=== PATIENT | male | born 1970 | race African-American/Black ===

== ENCOUNTER 2016-10-27 21:33 | Emergency (ER) | payer OTHER ==
[~2016-10-27] VITALS: Ht 170.2 cm; Wt 105.0 kg
[~2016-10-27 21:33] MED LIST: ALBUAER3 INH; AMLO10 PO; CLON0.1T PO; CYCL1TAB29 PO; HYDR25TA35 PO; HYDR25TA5 PO
[2016-10-27 21:41] VITALS: BP 121/71; PULSE 72; RESP 20; TEMP 98.6; O2SAT 95
--- NOTE | 2016-10-27 22:21 | PD ---
HPI Chief Complaint: Injury Time Seen by Provider: 22:17 Travel History International Travel<30 days: No Contact w/Intl Traveler<30days: No Traveled to known affect area: No History of Present Illness HPI 45-year-old black male right-hand dominant presents emergency Department in custody of PD for evaluation of right wrist pain. According to PD he was restraining another individual against her will. The patient struck his hand and wrist against a table in anger. This is how he sustained his injury. He states that he had broken his wrist many years ago as a child. He denies any other injuries. 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 He does see shadows. [facility] Past Medical History Narrative Medical DJD, Hypertension, hypercholesterolemia, retinitis pigmentosa Arthritis: Yes (KNEE- LEFT) Cardiovascular Problems: Yes (HTN ) High Cholesterol: Yes Diminished Hearing: No Hypertension: Yes Immunizations Current: Yes Tetanus Vaccination: > 5 Years Past Surgical History Body Medical Devices: RETINITIS PIGMENTOSA Eye Surgery: Yes (right eye) Social History Alcohol Use: Yes (OCCASIONAL) Tobacco Use: Yes (1 PACK PER DAY) Substance Use: Yes (CANNABIS) Allergies-Medications (Allergen,Severity, Reaction): Coded Allergies: Tramadol (Verified Adverse Reaction, Intermediate, upset stomach, 10/27/16) Reported Meds & Prescriptions Reported Meds & Active Scripts Active Hydrochlorothiazide 25 Mg Tab 25 Mg PO DAILY Reported Proair Hfa 8.5 GM Inh (Albuterol Sulfate) 90 Mcg/Act Aer 2 Puff INH Q4-6H PRN 108 mcg/actuation Flexeril (Cyclobenzaprine HCl) 10 Mg Tab 10 Mg PO TID PRN Hydralazine (Hydralazine HCl) 25 Mg Tab 25 Mg PO DAILY Take with a meal Clonidine (Clonidine HCl) 0.1 Mg Tab 0.1 Mg PO DAILY Review of Systems Except as stated in HPI: all other systems reviewed are Neg Physical Exam Narrative GENERAL: This is a well-nourished, well-developed patient, in no apparent distress. Patient is handcuffed to the bed with his left wrist. SKIN: No rashes, ecchymoses or lesions. Warm and dry. HEAD: Atraumatic. Normocephalic. EYES: PERRL, EOMI, no discharge or injection. No scleral icterus. EARS: Clear NOSE: Nasal turbinates appear normal. THROAT: Mucosa pink and moist. Airway patent. NECK: Trachea midline. supple, moves head freely. LUNGS: Clear to auscultation. CV: Regular in rhythm. ABDOMEN: Soft nontender. EXT: No clubbing cyanosis. Examination of the right upper extremity reveals pain in the dorsal and volar wrist. Mild discomfort in the snuffbox. He has pain to the proximal farhan. No distal farhan pain. No pain in the fingers. He is able to open close his fingers freely. Good co founder and cto. Median/ulnar /radial nerves grossly intact.. The skin is intact. No pain in the elbow or shoulder. Data Data Last Documented VS Vital Signs Date Time Temp Pulse Resp B/P Pulse Ox O2 Delivery O2 Flow Rate FiO2 10/27/16 21:41 98.6 72 20 121/71 95 Orders Wrist, Complete ([id number]) (10/27/16 22:17) Ice/Cold Pack (10/27/16 22:17) MDM Medical Decision Making Medical Screen Exam Complete: Yes Emergency Medical Condition: Yes Medical Record Reviewed: Yes Interpretation(s) Right wrist: Negative for acute bony injury Differential Diagnosis MDM: High Differential diagnoses: Fracture, sprain, strain, dislocation, contusion, neurovascular injury Narrative Course Icepack applied. X-rays of the right wrist. X-ray of the right wrist is negative for acute bony injury. Patient is given an Darell wrap. The patient is medically cleared to go to [facility]. Patient given 800 mg of ibuprofen here in the ER. This is right wrist and hand contusion Diagnosis Primary Impression: Contusion of multiple sites of right hand and wrist Qualified Code: S60.221A - Contusion of multiple sites of right hand and wrist , initial encounter Patient Instructions: General Instructions Additional Instructions: Rest. Elevation. Darell wrap. Motrin. Ice packs for next 3 days. Follow-up with a primary care doctor in the next 3-7 days. Return to the ER for any problems. Med/Other Pt SpecificInfo: Prescription(s) given Disposition: 01 DISCHARGE HOME Condition: Stable Paul Reilly Oct 27, 2016 22:21
--- NOTE | 2016-10-27 22:42 | RADRPT ---
EXAM DATE/TIME: 10/27/2016 22:28 [place] COMPARISON: No previous studies available for comparison. INDICATIONS : Right wrist pain after punching a table today. MEDICAL HISTORY : Previous fracture. SURGICAL HISTORY : None. ENCOUNTER: Initial ACUITY: 1 day PAIN SCORE: 10/10 LOCATION: Right entire wrist. FINDINGS: Three view examination of the right wrist demonstrates no soft tissue swelling, dislocation, or fract ure. The carpal bones are in normal alignment. The joint spaces are maintained. Bony mineralizatio n is normal. CONCLUSION: No acute disease. Renan Bonilla MD on October 27, 2016 at 22:40 Board Certified Radiologist. This report was verified electronically.
[2016-10-27] MEDS ORDERED: IBUP800T23 PO (22:58)
[2016-10-27] MEDS ORDERED: IBUPROFEN 800 MG TAB PO ONE (23:00)
== END 2016-10-27 23:33 | disposition home or self-care (01) ==
LOC: NEPB 21:33
DX: S60.221A Contusion of right hand, initial encounter (principal); I10 Essential (primary) hypertension; E78.00 Pure hypercholesterolemia, unspecified; F17.210 Nicotine dependence, cigarettes, uncomplicated; F12.10 Cannabis abuse, uncomplicated; W22.8XXA Striking against or struck by other objects, initial encounter; Y93.89 Activity, other specified; Y92.89 Other specified places as the place of occurrence of the external cause; Y99.0 Civilian activity done for income or pay
CPT/HCPCS: 73110; 99283